=== PATIENT | male | born 1990 | race Caucasian/White ===

== ENCOUNTER 2019-09-30 02:04 | Emergency (ER) | payer SELFPAY ==
[2019-09-30] MEDS ORDERED: Lidocaine 1% w/Epinephrine 1:100K 20 ML VIAL ONE (02:48)
[2019-09-30] MEDS ORDERED: Morphine 4 MG/ML VIAL ONE (02:58)
[2019-09-30 03:08] LABS: Acetaminophen Less than 6.0 mcg/mL (10.0-30.0); Alcohol Less than 10 mg/dL (Less than 10); Salicylate Less than 8.0 mg/dL (15.0-30.0)
[2019-09-30 03:09] LABS: Hemoglobin 13.3 g/dL (14.0-18.0); Mean Corpuscular HGB CONC 36.7 g/dL (32.0-36.0); Mean Corpuscular Hemoglobin 33.3 pg (27.0-31.0); Mean Corpuscular Volume 90.8 fL (78.0-98.0); Mean Platelet Volume 8.1 fL (7.4-10.4); Platelet Count 266 thou/uL (130-400); RBC Distribution Width 11.6 % (11.5-14.5); Red Blood Cell (RBC) Count 3.99 mill/uL (4.70-6.10); White Blood Cell (WBC) Count 15.7 thou/uL (4.8-10.8)
[2019-09-30 03:14] LABS: ALT (SGPT) 14 U/L (8-55); AST (SGOT) 32 U/L (5-34); Albumin 3.9 g/dL (3.5-5.0); Alkaline Phosphatase 62 U/L (40-110); Anion Gap 11 mmol/L (10-20); BUN (Urea Nitrogen) 15 mg/dL (8.9-20.6); Bilirubin, Total 0.8 mg/dL (0.2-1.2); Calc. Creatinine Clearance 0 mL/min (70-130); Calcium 8.2 mg/dL (7.8-10.44); Carbon Dioxide 26 mmol/L (22-29); Chloride 105 mmol/L (98-107); Estimated GFR-MDRD Greater than 90; Globulin 2.6 g/dL (2.4-3.5); Glucose 79 mg/dL (70-105); Potassium 4.5 mmol/L (3.5-5.1); Protein, Total 6.5 g/dL (6.0-8.3); Sodium 137 mmol/L (136-145)
[2019-09-30 03:20] LABS: #Eosinphils 0.1 thou/uL (0.0-0.7); #Lymphocytes 1.7 thou/uL (1.20-3.40); #Monocytes 1.2 thou/uL (0.11-0.59); #Neutrophils 12.6 thou/uL (1.40-6.50); %Basophils 0.3 % (0.0-1.0); %Eosinophils 0.8 % (0.0-10.0); %Lymphocytes 11.1 % (21.0-51.0); %Monocytes 7.5 % (0.0-10.0); %Neutrophils 80.4 % (42.0-75.0)
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
[2019-09-30] MEDS ORDERED: Iopamidol-370 76% 500 ML 1 ML ONE (15:30)
== END 2019-09-30 04:17 | disposition home or self-care (01) ==
LOC: ERS 02:04
DX: S42.021A Displaced fracture of shaft of right clavicle, initial encounter for closed fracture (principal); S01.81XA Laceration without foreign body of other part of head, initial encounter; S30.811A Abrasion of abdominal wall, initial encounter; V20.4XXA Motorcycle driver injured in collision with pedestrian or animal in traffic accident, initial encounter
CPT/HCPCS: 12002; 12016; 70450; 71260; 72125; 74177; 80053; 80307; 85025; 96374; G0390; J2270; Q9967

== ENCOUNTER 2019-10-05 12:42 | Emergency (ER) | payer SELFPAY ==
[2019-10-05] MEDS ORDERED: Ondansetron ODT 4 MG TAB ONE (14:09)
--- NOTE | 2019-10-05 14:29 | CT ---
Exam: Head CT without contrast HISTORY: Status post [facility] 5 days ago. Vomiting and headache. COMPARISON: 09/30/2019 FINDINGS: Hemorrhage: No intraparenchymal hemorrhage or extra-axial hematoma. Brain parenchyma: Cortical fallon-white matter differentiation is preserved. No mass effect or midline shift. Basilar cisterns are patent. Ventricular system: Ventricles and sulci are patent and symmetric. Calvarium: Intact. Sinuses and mastoid air cells: Adequate aeration. Scalp: Redemonstration of post traumatic changes in the right frontal scalp. IMPRESSION: 1. No intracranial posttraumatic sequelae. 2. No acute intracranial process. 3. No significant interval change.
== END 2019-10-05 15:00 | disposition home or self-care (01) ==
LOC: ERS 12:42
DX: S01.01XA Laceration without foreign body of scalp, initial encounter (principal); S51.011A Laceration without foreign body of right elbow, initial encounter; V89.2XXA Person injured in unspecified motor-vehicle accident, traffic, initial encounter
CPT/HCPCS: 70450; Q0162

== ENCOUNTER 2019-12-16 07:30 | Inpatient (IN) | payer OTHER, SELFPAY ==
[2019-12-16 09:35] LABS: #Eosinphils 0.1 thou/uL (0.0-0.7); #Lymphocytes 1.1 thou/uL (1.20-3.40); #Monocytes 0.6 thou/uL (0.11-0.59); #Neutrophils 2.4 thou/uL (1.40-6.50); %Basophils 0.8 % (0.0-1.0); %Eosinophils 1.5 % (0.0-10.0); %Lymphocytes 25.9 % (21.0-51.0); %Monocytes 14.7 % (0.0-10.0); %Neutrophils 57.1 % (42.0-75.0); Hemoglobin 17.7 g/dL (14.0-18.0); Mean Corpuscular HGB CONC 33.8 g/dL (32.0-36.0); Mean Platelet Volume 7.5 fL (7.4-10.4); Platelet Count 241 thou/uL (130-400); RBC Distribution Width 14.1 % (11.5-14.5); White Blood Cell (WBC) Count 4.2 thou/uL (4.8-10.8)
[2019-12-16] MEDS ORDERED: Ketorolac Tromethamine 30 MG/ML VIAL ONE (09:35)
[2019-12-16] MEDS ORDERED: PHENYLEPHRINE-NS 100 MCG/ML 10 ML SYRINGE ONE (09:35)
[2019-12-16] MEDS ORDERED: Lidocaine 1% PF 5 ML VIAL ONE (09:35)
[2019-12-16] MEDS ORDERED: PROPOFOL 200 MG/20 ML VIAL ONE (09:35)
[2019-12-16] MEDS ORDERED: Ondansetron PF 4 MG/2 ML Vial ONE (09:35)
[2019-12-16] MEDS ORDERED: Dexamethasone 20 MG/5 ML VIAL ONE (09:35)
[2019-12-16] MEDS ORDERED: EPHEDRINE 25 MG/5 ML SYRINGE ONE (09:35)
[2019-12-16 09:53] LABS: ALT (SGPT) 16 U/L (8-55); AST (SGOT) 15 U/L (5-34); Albumin 4.2 g/dL (3.5-5.0); Alkaline Phosphatase 127 U/L (40-110); Anion Gap 12 mmol/L (10-20); BUN (Urea Nitrogen) 10 mg/dL (8.9-20.6); Bilirubin, Total 0.5 mg/dL (0.2-1.2); CK (CPK) 42 U/L (30-200); CRP (Inflammatory) 1.68 mg/dL (= or < 0.5); Calc. Creatinine Clearance 0 mL/min (70-130); Carbon Dioxide 29 mmol/L (22-29); Chloride 99 mmol/L (98-107); Estimated GFR-MDRD Greater than 90; Globulin 2.9 g/dL (2.4-3.5); Glucose 100 mg/dL (70-105); Potassium 3.6 mmol/L (3.5-5.1); Protein, Total 7.1 g/dL (6.0-8.3); Sodium 136 mmol/L (136-145)
[2019-12-16 10:28] VITALS: BMI 23.3
[2019-12-16] MEDS ORDERED: Ondansetron ODT 4 MG TAB SL PRN (10:30)
[2019-12-16] MEDS ORDERED: Ondansetron PF 4 MG/2 ML Vial IVP PRN (10:30)
[2019-12-16] MEDS ORDERED: Acetaminophen 325 MG TAB PO PRN ×2 (10:30→21:33)
[2019-12-16] MEDS ORDERED: HYDROcodone/Acetaminophen 7.5/325 mg Tablet PO PRN (11:03)
[2019-12-16] MEDS ORDERED: Morphine 2 MG/ML VIAL SLOW IVP PRN (11:03)
[2019-12-16] MEDS: Sodium Chloride 0.9% 1,000 ML IV SCH ×2 (11:14→22:02)
[2019-12-16] MEDS ORDERED: Ketorolac Tromethamine 30 MG/ML VIAL IVP SCH ×3 (11:15→19:00)
[2019-12-16] MEDS ORDERED: Fentanyl 100 MCG/2 ML VIAL ONE ×2 (15:48→20:11)
[2019-12-16] MEDS ORDERED: Vancomycin HCl 1.25 GM in Sodium Chloride 0.9% 250 ML 250 ML IVPB SCH (17:15)
[2019-12-16] MEDS ORDERED: Thrombin 5000 UNITS/5 ML VIAL ONE (19:53)
[2019-12-16] MEDS ORDERED: Sodium Chloride 0.9% 0 ML ONE (19:53)
[2019-12-16] MEDS ORDERED: Bupivacaine PF 0.5% 30 ML VIAL ONE (19:53)
[2019-12-16] MEDS ORDERED: Bacitracin Zinc Ointment 30 gm TUBE ONE (19:53)
[2019-12-16] MEDS ORDERED: Promethazine HCl 25 MG/ML VIAL SLOW IVP PRN (21:20)
[2019-12-16] MEDS ORDERED: Ondansetron HCl/PF 4 MG/2 ML Vial IVP PRN (21:20)
[2019-12-16] MEDS ORDERED: Promethazine HCl 25 MG/ML VIAL IM PRN (21:20)
[2019-12-16] MEDS ORDERED: Fentanyl 100 MCG/2 ML VIAL SLOW IVP PRN (21:33)
[2019-12-16] MEDS ORDERED: Bisacodyl 10 MG SUPP PR PRN (21:33)
[2019-12-16] MEDS ORDERED: Milk Of Magnesia 30 ML UDCUP PO PRN (21:33)
[2019-12-16] MEDS ORDERED: traMADol HCl 50 MG TAB PO PRN (21:33)
[2019-12-16] MEDS ORDERED: Meperidine HCl/PF 25 MG/ML VIAL IM PRN (21:41)
[2019-12-16] MEDS ORDERED: Ketorolac Tromethamine 30 MG/ML VIAL IVP PRN (21:41)
[2019-12-16] MEDS ORDERED: Communication Order-Pharmacy FS PRN (21:45)
[2019-12-16] MEDS ORDERED: TETANUS AND DIPHTHERIA TOX/PF 0.5 ML DISP.SYRIN IM SCH (21:45)
[2019-12-17 05:53] LABS: #Lymphocytes 0.6 thou/uL (1.20-3.40); #Monocytes 0.2 thou/uL (0.11-0.59); #Neutrophils 2.8 thou/uL (1.40-6.50); %Basophils 0.6 % (0.0-1.0); %Eosinophils 0.3 % (0.0-10.0); %Lymphocytes 15.7 % (21.0-51.0); %Monocytes 4.3 % (0.0-10.0); %Neutrophils 79.1 % (42.0-75.0); Hemoglobin 16.6 g/dL (14.0-18.0); Mean Corpuscular HGB CONC 34.6 g/dL (32.0-36.0); Mean Corpuscular Hemoglobin 34.6 pg (27.0-31.0); Mean Corpuscular Volume 99.9 fL (78.0-98.0); Mean Platelet Volume 7.8 fL (7.4-10.4); Platelet Count 276 thou/uL (130-400); RBC Distribution Width 13.8 % (11.5-14.5); Red Blood Cell (RBC) Count 4.79 mill/uL (4.70-6.10); White Blood Cell (WBC) Count 3.6 thou/uL (4.8-10.8)
[2019-12-17] MEDS ORDERED: Vancomycin HCl 1.25 GM in Sodium Chloride 0.9% 250 ML 250 ML IVPB SCH (06:00)
[2019-12-17] MEDS: Aspirin 81 mg Enteric Coated Tablet PO SCH ×2 (08:58→19:51)
--- NOTE | 2019-12-17 13:06 | OP ---
DATE OF PROCEDURE: 12/16/2019 POSTOPERATIVE DIAGNOSIS: Left ring finger deep abscess. POSTOPERATIVE DIAGNOSES: 1. Left ring finger deep abscess with some softening to the bone, left ring finger distal phalanx tip consistent with gross osteomyelitis. 2. Early tendon sheath infection extending to just proximal to A4 marina with no other further infiltration. INDICATION: The patient with history of swelling with subcutaneous abscess. PROCEDURES PERFORMED: 1. Incision and drainage of left ring finger abscess. 2. Irrigation of tendon sheath, left ring finger. 3. Bone biopsy of distal phalanx. SPECIMEN SENT: Culture of the abscess with biopsy of bone for culture and biopsy. ESTIMATED BLOOD LOSS: 10 mL. TOURNIQUET TIME: 11 minutes. DESCRIPTION OF PROCEDURE: After successful general endotracheal anesthesia, the limb was prepped and draped. We gave the patient 20 mL of 0.5% Marcaine metacarpophalangeal block level and proceeded. We made a volar incision centered over the fluctuance, avoiding the initially extended it just to the level of the flexion crease of the thumb MP joint, but we saw a thick yellow gross purulence and there was some concern that some might have spread underneath the tendon sheath at the A4 marina level. We thus extended the incision proximally in a zigzag Stefania incision down to the level of alf to the MP joint. Proximally, there was no tendon sheath involvement except for just around the A4 marina. Thus, we had to irrigate the tendon sheath with the catheter using 200 mL of normal saline. After irrigating and debriding gross green mucopurulence along with and the epidermis had from the dermis, leaving a new skin formation and we removed the old epidermis. We irrigated the wound with a total of 2 L normal saline bulb syringe pressure. There was no gross infection left, and we debrided the skin over 2 mm wide by approximately 6 mm long the area of the distal aspect of the abscess cavity. We then at the distal end of the digit, inspected the bone underneath the fat that was infected and saw it was somewhat softened to the tip. Using a Crile and hemostat, we were able to remove enough bone for culture and specimen. We also sent abscess cavity contents for culture. The wound remained open. We had protected the neurovascular bundle during the dissection. We released the tourniquet and the digit was pink at all area where skin was still remaining. He had a normal saline packed gauze placed in the wound and a bulky dressing without evidence of anesthetic or operative complication. Job ID: [id number]
[2019-12-17 13:53] LABS: SARS-CoV-2 MS2 Positive; SARS-CoV-2 N Gene Negative; SARS-CoV-2 S Gene Negative; SARS-CoV-2 by NAA Not Detected (NotDetected); SARS-CoV-2 orf1ab Negative
[2019-12-17] MEDS: Vancomycin HCl 1.25 GM in Sodium Chloride 0.9% 250 ML 250 ML IVPB SCH (18:37)
[2019-12-17] MEDS: HYDROcodone/Acetaminophen 5/325 mg Tablet PO PRN (19:51)
[2019-12-17] MEDS: Morphine 4 MG/ML VIAL SLOW IVP PRN (19:51)
[2019-12-18] MEDS: HYDROcodone/Acetaminophen 5/325 mg Tablet PO PRN ×2 (03:41→19:36)
[2019-12-18] MEDS: Vancomycin HCl 1.25 GM in Sodium Chloride 0.9% 250 ML 250 ML IVPB SCH ×2 (06:14→18:11)
[2019-12-18] MEDS: Aspirin 81 mg Enteric Coated Tablet PO SCH ×2 (08:09→19:36)
[2019-12-18] MEDS: Morphine 4 MG/ML VIAL SLOW IVP PRN (19:35)
[2019-12-18 20:11] VITALS: BP 103/65; TEMP 98.2
--- NOTE | 2019-12-21 15:13 | EKG ---
Test Reason : Blood Pressure : / mmHG Vent. Rate : 056 BPM Atrial Rate : 056 BPM P-R Int : 156 ms QRS Dur : 090 ms QT Int : 414 ms P-R-T Axes : 056 075 053 degrees QTc Int : 399 ms Sinus bradycardia Otherwise normal ECG Confirmed by EDVIN SMITH DO ([id number]), editorial project manager JOSE ELIAS TAYLOR ([id number]) on 12/21/2019 3:12:50 PM Referred By: Confirmed By:EDVIN SMITH DO
== END 2019-12-18 20:55 | disposition home or self-care (01) | DRG 580 ==
LOC: ERS 07:30 → OBSVTOIN 10:21 → SURG A 10:21
PROVIDERS: ADMIT Orthopaedic Surgery Hand Surgery; ATTEND Orthopaedic Surgery Hand Surgery
PROC: 0PBV0ZX Excision of Left Finger Phalanx, Open Approach, Diagnostic (ICD-10-PCS; principal; 2019-12-16)
PROC: 0LD80ZZ Extraction of Left Hand Tendon, Open Approach (ICD-10-PCS; 2019-12-16)
PROC: 0X9K0ZZ Drainage of Left Hand, Open Approach (ICD-10-PCS; 2019-12-16)
DX: L02.512 Cutaneous abscess of left hand (principal); M86.8X4 Other osteomyelitis, hand; Z20.828 Contact with and (suspected) exposure to other viral communicable diseases; M65.142 Other infective (teno)synovitis, left hand; L03.012 Cellulitis of left finger
CPT/HCPCS: 36415; 80053; 82550; 85025; 85652; 86140; 87070; 87077; 87186; 87205; 87635; 88305; 93005; 96374; G0378; J1100; J1885; J2270; J2405; J2704; J3010; J3370; J3490; J7050; S0020; U0003